=== PATIENT | female | born 1965 | race Caucasian/White ===

== ENCOUNTER 2016-09-18 14:06 | Observation (INO) | payer OTHER ==
[2016-09-17 13:58] VITALS: Ht 162.6 cm; Wt 85.0 kg
[~2016-09-18] VITALS: Ht 162.6 cm; Wt 85.0 kg
[2016-09-18] VITALS (18 sets, daily range): BP systolic 125–145; BP diastolic 59–72; PULSE 78–84; RESP 11–18
[~2016-09-18 14:06] MED LIST: BEN25 PO; EPIN0.3P4 INJ; FAMO-18 PO; PRED20TA PO
[2016-09-18] MEDS ORDERED: ASPI-664 PO (14:53)
[2016-09-18] MEDS ORDERED: LANT3I SC (14:53)
[2016-09-18] MEDS ORDERED: METO100T13 PO (14:54)
[2016-09-18] MEDS ORDERED: GLIP-95 PO (14:55)
[2016-09-18] MEDS ORDERED: BENA40TA41 PO (14:55)
[2016-09-18] MEDS ORDERED: CEFAZOLIN 1 GM/50 ML (PMX) 50 ML IVPB SCH (15:30)
[2016-09-18] MEDS ORDERED: NEOSTIGMINE 3 MG/3 ML SYRINGE ONE (16:25)
[2016-09-18] MEDS ORDERED: ROPIVACAINE 0.5 % 30 ML VIAL ONE (16:25)
[2016-09-18] MEDS ORDERED: ROCURONIUM 50 MG INJ ONE (16:25)
[2016-09-18] MEDS ORDERED: SUCCINYLCHOLINE CHLORIDE 100 MG/5 ML SYG IV ONE (16:25)
[2016-09-18] MEDS ORDERED: GLYCOPYRROLATE 0.4 MG INJ ONE (16:25)
[2016-09-18] MEDS ORDERED: LIDOCAINE 2% (SDV) 5 ML INJ ONE (16:25)
[2016-09-18] MEDS ORDERED: PROPOFOL 20 ML ONE (16:25)
[2016-09-18] MEDS ORDERED: CEFAZOLIN 1 GM INJ ONE (16:42)
--- NOTE | 2016-09-18 16:46 | RADRPT ---
PROCEDURE: XR Ankle. CLINICAL INDICATION: Fracture TECHNIQUE: Three views of the left ankle were performed. COMPARISON: None. FINDINGS: Overlying cast obscures osseous detail. There is an oblique, mildly displaced fracture of the dista l fibula. Small fracture fragments are present in the region of the posterior malleolus. There is a tiny density noted at the medial clear space likely from remote avulsion injury. IMPRESSION: 1. Casted lateral and posterior malleolar fractures. RPTAT: EE .Zak Biggs MD, MD Date Time Electronically viewed and signed by .Zak Biggs MD, MD on 09/18/2016 16:46 .d/
[2016-09-18] MEDS ORDERED: DIPHENHYDRAMINE 50 MG INJ IV PRN ×2 (17:30→19:00)
[2016-09-18] MEDS ORDERED: hydrALAzine 20 MG INJ IV PRN (17:30)
[2016-09-18] MEDS ORDERED: FENTAnyl 50 MCG/ML VIAL IV PRN (17:30)
[2016-09-18] MEDS ORDERED: EPHEDrine SULFATE 50 MG/5 ML SYG IV PRN (17:30)
[2016-09-18] MEDS ORDERED: ONDANSETRON 4 MG INJ IV PRN ×2 (17:30→19:00)
[2016-09-18] MEDS ORDERED: LABETALOL HCL 20MG INJ IV PRN (17:30)
[2016-09-18] MEDS ORDERED: HYDROmorphONE (0.2 MG/ML) 10ML SYG IV PRN (17:30)
[2016-09-18] MEDS ORDERED: MIDAZOLAM 1 MG/ML 2 ML INJ IV PRN (17:30)
[2016-09-18] MEDS ORDERED: METOCLOPRAMIDE 10 MG INJ IV PRN (17:30)
[2016-09-18] MEDS ORDERED: MEPERIDINE 25 MG INJ IV PRN (17:30)
[2016-09-18] MEDS: HYDROmorphONE (0.2 MG/ML) 10ML SYG IV PRN ×5 (18:55→19:48)
[2016-09-18] MEDS ORDERED: HYDROCODONE/APAP (5/325) TAB PO PRN (19:00)
[2016-09-18] MEDS ORDERED: IBUPROFEN 600 MG TAB PO PRN (19:00)
[2016-09-18] MEDS ORDERED: ZOLPIDEM 5 MG TAB PO PRN (19:00)
--- NOTE | 2016-09-18 19:02 | OPR ---
DATE OF OPERATION: 09/18/2016 SURGEON: Winston Black DPM MESH MAN: None. PREOPERATIVE DIAGNOSES: 1. Left ankle fracture. 2. Pain. 3. Diabetes with neuropathy. 4. Edema. 5. Type 2 diabetes. POSTOPERATIVE DIAGNOSES: 1. Left ankle fracture pain. 2. Diabetes with neuropathy. 3. Edema. 4. Type 2 diabetes. OPERATION: Left ankle open reduction internal fixation with plate, screws, and bone graft, Vitoss. PATHOLOGY: None. ANESTHESIA: General. ANESTHESIOLOGIST: Dr. Mack. HEMOSTASIS: Electrocautery. ESTIMATED BLOOD LOSS: 30 mL COMPLICATIONS: None. MATERIALS: Combination of locking and nonlocking titanium screws and a 4 hole fibular plate, 4.0 x 20 mm in length cannulated screw, and materials also include the Vitoss bone graft. INDICATION FOR PROCEDURE: This is a 51-year-old female with type 2 diabetes, poorly controlled. Sh e has fallen from stairs and subsequently developed an ankle fracture with dislocation. The patient was seen preoperatively, had been treated with a splint, persistent pain and dislocation. Surgery recommended. Discussed the procedure, risks, benefits, potential complications. Informed consent w as obtained, and site was marked. X-rays were taken preoperatively to visualize any changes from pr ior x-rays, and alignment appeared improved, fracture persisted. PROCEDURE IN DETAIL: The patient brought into the operating room and placed in the supine position. Formal timeout was performed. The patient was given a gram of Ancef preoperatively. The extremit y was cleansed with chlorhexidine and draped in the usual sterile fashion. A thigh tourniquet had b een placed. The extremity was exsanguinated and tourniquet elevated to 300 mmHg. At this time, att ention was directed to the left lateral ankle. Incision was made with a 10 blade. The periosteum w as elevated off of the bone. The sural nerve had been identified and retracted anterior to the fibu la. K elevator is used to elevate the tissues. Fracture site was identified, and using a curette, loose bone fragments were debrided, hematoma evacuated, and the fracture site irrigated with saline. At this time, the fracture site was mobilized and relocated. Temporary fixation was obtained usin g K-wires and confirmation with imaging. At this time, a partially threaded cannulated screw was pl aced from posterior to anterior with a 4.0 x 20 mm screw. At this time, the bone clamp was removed. The fracture appeared to be stable. Then, at this time, plate fixation applied to the lateral asp ect of the fibula and secured with a combination of locking and nonlocking screws with a 4 hole fibu lar plate. The medial gutter appeared reduced, and no syndesmotic screws utilized. The patient had a bony defect from the fracture site. At this time, a bone graft Vitoss was used to fill in the ganga ne voids. Tourniquet was deflated at 52 minutes. The patient had estimated blood loss of 30 mL. H emostasis was achieved. The wound was irrigated and surgical incision closed in a layered fashion u sing 3-0 and 4-0 Vicryl and 3-0 nylon. The incision was covered with Xeroform gauze, Webril, and pl aced in a short leg cast, which was then bivalved. The patient tolerated the procedure well. [facility] to incision. The patient was transferred to PACU with vital signs stable. POSTOPERATIVE PLAN: The patient will be admitted for monitoring. We will recommend ice, elevation, monitoring of pain. Continue the Ancef. We will have physical therapy evaluate. The patient is n onweightbearing to the left lower extremity. Anticipate observation overnight. We will initiate an ticoagulation therapy with Lovenox for DVT prophylaxis and Dr. Rey consulted for medical managemen t. Dictated By: WINSTON TOLENTINO/BRIANNA Conf#: [id number] DID#: [id number]
[2016-09-18] MEDS: FENTAnyl 50 MCG/ML VIAL IV PRN ×2 (19:22→19:29)
[2016-09-18] MEDS ORDERED: GLUCOSE GEL 15 GRAM TUBE PO PRN ×2 (19:30)
[2016-09-18] MEDS ORDERED: GLUCOSE GEL 15 GRAM TUBE BUCCAL PRN (19:30)
[2016-09-18] MEDS ORDERED: DEXTROSE 50% 50 ML SYRINGE IV PRN ×2 (19:30)
[2016-09-18] MEDS ORDERED: GLUCAGON 1 MG INJ IM PRN (19:30)
--- NOTE | 2016-09-18 20:42 | HP ---
DATE OF ADMISSION: 09/18/2016 INTERNAL MEDICINE HISTORY REASON FOR ADMISSION: Status post left ankle ORIF. HISTORY OF PRESENT ILLNESS: The patient is a 51-year-old female with history of diabetes mellitus t ype 2, poorly controlled, hypertension, diabetic neuropathy, peripheral edema who unfortunately sust ained a fall on 09/03/2016. She was found to have a left ankle fracture, treated initially with a sp lint, but she continued to have persistent pain and dislocation. Surgery was recommended. The patien t today underwent ORIF of the left ankle. Now patient is in the recovery room. The patient overall is doing well, complaining of slight pressure-like pain in the left foot. The left ankle is status p ost cast and banding. The patient has good sensation of the toes and movement. The patient denies a ny chest pain or shortness of breath, denies any fever or chills. The patient is admitted for [facility] care. PAST MEDICAL HISTORY: Includes diabetes mellitus on insulin, hypertension, neuropathy, peripheral e ángel. ALLERGIES: EXENATIDE. SURGICAL HISTORY: Left ankle ORIF and some surgery. FAMILY HISTORY: Noncontributory. SOCIAL HISTORY: The patient is single with no kids. The patient denies tobacco, alcohol or IV drug use. HOME MEDICATIONS: The patient's home medications include: 1. Benazepril 40 mg daily. 2. Toprol XL 100 mg daily. 3. Aspirin 81 daily. 4. Glipizide 20 mg b.i.d. 5. Lantus 65 units at bedtime. EKG: Which was done before surgery preop shows borderline T wave abnormality in the anterior leads , 71 beats per minute. Also reviewed the patient's preop labs and studies. The physician was Dr. Luke Sen. LABORATORY DATA: On 09/11/2012 shows a white count of 7.1, hemoglobin 13.4, hematocrit 40, platelet count 23, neutrophils 59%, lymphocytes 33%, and sodium was 141, potassium 4.3, chloride 101, bicarb nena 25, BUN is 11, creatinine 0.42, glucose of 81. AST 20, ALT 19, albumin is 4.5. UA shows basi fabio negative, negative nitrites, no WBCs. INR 1.1E. ASSESSMENT AND PLAN: 1. This is a 51-year-old female with history of diabetes mellitus, hypertension, status post left ankle fracture, now status post open reduction internal fixation. 2. Status post left ankle ORIF x-ray prior to surgery showed casted lateral and posterior malleolus fracture. Pain control will be provided. The patient will be placed on deep vein thrombosis proph ylaxis and gastrointestinal prophylaxis. SCDs on the right leg. Incentive spirometer as tolerated. 3. Diabetes mellitus, put on insulin sliding scale. Current glucose levels are good, 80s and 100. Will restart her insulin soon, as diet will be advanced. The patient will be placed on an ADA low sa lt diet. 4. Hypertension. We will resume the patient's blood pressure medications including beta blockers. Continue aspirin for cardiac protection. 5. Physical therapy as tolerated. Pain control will be provided. Patient is on cefazolin for anti biotic prophylaxis in the perioperative stage. I will follow patient closely with you. I would lik e to thank you for allowing me to see this patient in internal medicine consultation. We will carine wyatt Dictated By: PANCHO CISNEROS/BRIANNA Conf#: [id number] DID#: [id number]
[2016-09-18] MEDS: INSULIN ASPART [NOVOLOG] 3 ML PEN SC SCH (21:00)
[2016-09-18] MEDS: morphine 2 MG INJ IV PRN (21:50)
[2016-09-18] MEDS: CEFAZOLIN 1 GM/50 ML (PMX) 50 ML IVPB SCH (21:58)
[2016-09-19] MEDS: KETOROLAC 15 MG INJ IV PRN ×2 (00:06→22:38)
[2016-09-19] MEDS: ACCUCHECK AT 2AM (Patients on SS coverage) XX SCH (02:00)
[2016-09-19 05:57] LABS: ADD SCAN DIFF NO
[2016-09-19 06:04] LABS: BASOPHILS % 0.2 % (0.0-2.0); EOSINOPHILS # 0.1 10^3/ul (0.0-0.5); EOSINOPHILS % 1.1 % (0.0-7.0); HEMATOCRIT 39.3 % (37.0-47.0); HEMOGLOBIN 12.7 g/dl (12.0-16.0); LYMPHOCYTES # 1.5 10^3/ul (0.8-2.9); LYMPHOCYTES % 15.2 % (15.0-51.0); MEAN CORPUSCULAR HEMOGLOBIN 29.7 pg (29.0-33.0); MEAN CORPUSCULAR HGB CONC 32.3 g/dl (32.0-37.0); MEAN CORPUSCULAR VOLUME 91.8 fl (82.0-101.0); MONOCYTE # 0.6 10^3/ul (0.3-0.9); MONOCYTES % 6.4 % (0.0-11.0); NEUTROPHIL # 7.4 10^3/ul (1.6-7.5); NEUTROPHILS % 76.7 % (39.0-77.0); PLATELET COUNT 260 10^3/UL (140-415); RED BLOOD COUNT 4.28 10^6/ul (4.20-5.40); RED CELL DISTRIBUTION WIDTH 12.9 % (11.5-14.5); WHITE BLOOD COUNT 9.7 10^3/ul (4.8-10.8)
[2016-09-19] MEDS: PANTOPRAZOLE (EC) 40 MG TAB PO SCH (06:27)
[2016-09-19] MEDS: CEFAZOLIN 1 GM/50 ML (PMX) 50 ML IVPB SCH ×3 (06:27→21:41)
[2016-09-19] MEDS: ENOXAPARIN 40 MG/0.4 ML SYG SC SCH (06:35)
[2016-09-19 06:37] LABS: CHOL/HDL RATIO 3.4 RATIO
[2016-09-19 06:59] LABS: THYROID STIMULATING HORMONE 1.03 MIU/L (0.465-4.680)
[2016-09-19 07:05] LABS: ALBUMIN 4.6 g/dl (3.3-4.9); ALBUMIN/GLOBULIN RATIO 1.76; BILIRUBIN,INDIRECT 0.5 mg/dl (0-1.1); BILIRUBIN,TOTAL 0.5 mg/dl (0.2-1.3); CALCIUM 8.9 mg/dl (8.4-10.2); CREATININE 0.48 mg/dl (0.44-1.00); POTASSIUM 4.4 mmol/L (3.5-5.1); TOTAL PROTEIN 7.2 g/dl (6.1-8.1)
[2016-09-19 08:08] VITALS: BP 139/62; RESP 20
[2016-09-19] MEDS: INSULIN ASPART [NOVOLOG] 3 ML PEN SC SCH ×4 (08:15→21:00)
[2016-09-19] MEDS: METOPROLOL (XL) 100 MG TAB PO SCH ×2 (09:00→21:32)
[2016-09-19] MEDS: ZINC SULFATE 220 MG CAP PO SCH (09:29)
[2016-09-19] MEDS: ASCORBIC ACID 500 MG TAB PO SCH (09:29)
[2016-09-19] MEDS: ASPIRIN (EC) 81 MG TAB PO SCH (09:29)
[2016-09-19] MEDS: ACETAMINOPHEN 325 MG TAB PO PRN ×2 (09:31→15:47)
[2016-09-19] MEDS: BENAZEPRIL 40 MG TAB PO SCH (09:32)
[2016-09-19 09:35] LABS: MAGNESIUM 1.9 mg/dl (1.7-2.5); PHOSPHORUS 4.1 mg/dl (2.5-4.9)
--- NOTE | 2016-09-19 14:04 | PN ---
DATE: 09/19/2016 SUBJECTIVE: The patient is postop day #1 left ankle ORIF. The patient feels overall better. She p articipated with physical therapy today; had difficulty bending the knee. Initially she had decreas ed sensation of the toes, but now it is intact. Glucose levels are in the low-mid 100s. PHYSICAL EXAMINATION: VITAL SIGNS: Temperature is slightly elevated at 99.4, pulse 82, respirations 20, blood pressure 13 9/62, saturations 97% on room air. GENERAL: The patient is in no acute distress. The patient is frail. HEENT: Normocephalic, atraumatic. CARDIOVASCULAR: S1, S2, regular rate and rhythm. LUNGS: Clear. ABDOMEN: Soft, nontender. EXTREMITIES: Left lower extremity in a special cast below the knee going to the foot. Toes are war m to touch and sensation is intact. LABORATORY: White count 9.7, hemoglobin 12.7, hematocrit 39, platelet count is 260, neutrophils 77% , lymphocytes 15%. Chemistry: Sodium 143, potassium 4.4, chloride 106, bicarbonate 27, BUN is 16, creatinine 0.48 and glucose of 98. Last glucose level was 167, hemoglobin A1c is 9.2. LFTs are nor mal. Cholesterol 166, LDL is 93, HDL 48, TSH is 1.03. MEDICATIONS: Reviewed. Include: 1. Vitamin C 1000 daily. 2. Zinc sulfate 220 mg daily. 3. Aspirin 81 mg daily. 4. Lotensin 40 mg daily. 5. Toprol-XL 100 daily. 6. Lovenox 40 mg subcutaneous daily. 7. Protonix 40 mg daily. 8. Accu-Chek before meals and at bedtime. 9. Cefazolin 1 IV q.8. 10. Insulin aspart per sliding scale. 11. Hypoglycemia protocol as directed. 12. Tylenol p.r.n. 13. Motrin p.r.n. 14. p.r.n. 15. Regina p.r.n. 16. Morphine p.r.n. 17. Zofran p.r.n. 18. Benadryl p.r.n. 19. Ambien p.r.n. ASSESSMENT AND PLAN: This is a 51-year-old female with a history of diabetes mellitus, poorly controlled, hypertension, status post left ankle fracture, now status post left ankle ORIF, postop day #1. 1. Status post open reduction internal fixation. Continue physical therapy, pain control. The pat ient is on deep vein thrombosis prophylaxis and gastrointestinal prophylaxis, incentive spirometer. Disposition is home soon, with home health and a front-wheel walker. 2. Diabetes mellitus. The patient's appetite is not that great, so still glucose levels are good. Would increasing insulin as needed. I discussed with medical management as an outpatient the with t he various options, including metformin, Januvia, Farxiga, etc. 3. Hypertension. The patient on Lotensin and Toprol-XL. Continue the same. Continue aspirin for cardiac protection. 4. Further recommendations per Dr. Black regarding discharge planning. Otherwise the patient is discharged. Recommend to follow up closely with him and her primary medical doctor. We will follow . Dictated By: PANCHO CISNEROS/BRIANNA Conf#: [id number] DID#: [id number]
--- NOTE | 2016-09-19 16:37 | CONS ---
DATE OF ADMISSION: 09/18/2016 DATE OF CONSULTATION: 09/19/2016 SUBJECTIVE FINDINGS: The patient is postoperative day #1 left ankle ORIF. The patient relates cons tipation, shaky with crutches. Additional training requested. Anesthesias is wearing off and pain around the ankle noted, controlled with medicines. The patient has been receiving antibiotics and i nitiated on Lovenox this morning. The patient had nausea this morning, but is now improved. Glycem ic control per Dr. Rey. OBJECTIVE FINDINGS: VITAL SIGNS: Temperature 99.4, pulse 82, respiratory rate 20, blood pressure 139/62, pulse oximetry is 97 on room air. GENERAL: The patient alert, oriented, in no acute distress. EXTREMITIES: Relates mild tenderness to the ankle. Calf is soft and supple. Toes are warm. She is able to mobilize them. The cast is clean. LABORATORIES: No new labs. Radiographs are pending. ASSESSMENT: 1. Left ankle open reduction internal fixation, postoperative day #1. 2. Postoperative nausea. 3. Diabetes type 2 with neuropathy. PLAN: Continue physical therapy. May benefit from the use of a walker as opposed to crutches. Con tinue anticoagulation therapy. Appreciate case management with the assistance of home health. Will need 7 days of Lovenox. Anticipate discharge in the morning. Continue icing the extremity. Annie nue tight glycemic control. The patient is nonweightbearing to the operative limb. Dictated By: WINSTON TOLENTINO/BRIANNA Conf#: [id number] DID#: [id number]
--- NOTE | 2016-09-19 17:33 | RADRPT ---
PROCEDURE: Left ankle x-ray series. CLINICAL INDICATION: Trauma, pain, open reduction and internal fixation. TECHNIQUE: Fluoroscopy was provided for the surgical procedure in progress. Multiple spot images were obtained. COMPARISON: 09/18/2016 at 1601 hours FINDINGS: Intraoperative images were obtained for localization during an ankle ORIF procedure. The procedure was performed by Dr. Black. No radiologist was present for the procedure. No diagnosis was made from the images. 25 seconds of fluoroscopic time was utilized for the procedure. 4 fluoroscopic images were submitted for interpretation. IMPRESSION: 1. Xray images obtained intraoperatively for localization during an ankle ORIF procedure. 2. Satisfactory position of orthopedic hardware. RPTAT: QQ .Eduardo Don MD, Date Time Electronically viewed and signed by .Eduardo Don MD, on 09/19/2016 17:32 .M/
--- NOTE | 2016-09-19 19:43 | RADRPT ---
PROCEDURE: Ultrasound of the left lower extremity venous system. CLINICAL INDICATION: Left leg pain and swelling, deep venous thrombosis TECHNIQUE: Barrera scale with and without compression, color doppler, spectral doppler of the venous system of the left lower extremity was performed. Venous augmentation maneuvers were utilized. COMPARISON: No prior studies are available for comparison. FINDINGS: Common femoral vein: Patent. Femoral vein: Patent. Popliteal vein: Patent. Calf veins: Obscured due to cast. No soft tissue abnormalities are identified. IMPRESSION: No evidence of a deep vein thrombosis within the left lower extremity. RPTAT: AADD .Villa Dorado MD, MD Date Time Electronically viewed and signed by .Villa Dorado MD, MD on 09/19/2016 19:42 .B/
[2016-09-19 20:00] VITALS: BP 154/67; RESP 18
[2016-09-19] MEDS ORDERED: INSULIN GLARGINE [LANtus] 3 ML PEN SC SCH (20:00)
[2016-09-19] MEDS: morphine 2 MG INJ IV PRN (21:30)
[2016-09-19] MEDS: DOCUSATE SODIUM 100 MG CAP PO SCH (21:30)
[2016-09-20] MEDS: ACCUCHECK AT 2AM (Patients on SS coverage) XX SCH (02:00)
[2016-09-20] MEDS: PANTOPRAZOLE (EC) 40 MG TAB PO SCH (06:14)
[2016-09-20] MEDS: CEFAZOLIN 1 GM/50 ML (PMX) 50 ML IVPB SCH ×2 (06:14→14:38)
[2016-09-20] MEDS: ENOXAPARIN 40 MG/0.4 ML SYG SC SCH (06:44)
[2016-09-20 07:38] VITALS: BP 147/67; RESP 16
[2016-09-20] MEDS: INSULIN ASPART [NOVOLOG] 3 ML PEN SC SCH ×2 (08:15→12:40)
[2016-09-20] MEDS: ACETAMINOPHEN 325 MG TAB PO PRN ×2 (08:23→14:38)
[2016-09-20] MEDS: ASPIRIN (EC) 81 MG TAB PO SCH (08:23)
[2016-09-20] MEDS: ASCORBIC ACID 500 MG TAB PO SCH (08:23)
[2016-09-20] MEDS: DOCUSATE SODIUM 100 MG CAP PO SCH (08:23)
[2016-09-20] MEDS: BENAZEPRIL 40 MG TAB PO SCH (08:23)
[2016-09-20] MEDS: ZINC SULFATE 220 MG CAP PO SCH (08:23)
[2016-09-20] MEDS: METOPROLOL (XL) 100 MG TAB PO SCH (08:24)
--- NOTE | 2016-09-20 10:49 | RADRPT ---
PROCEDURE: XR Ankle. CLINICAL INDICATION: Status post ORIF left lateral malleolar fracture. TECHNIQUE: AP, lateral, and oblique views of the left ankle were performed. COMPARISON: 09/18/2016 FINDINGS: Lateral fixation plate and screws are seen along the left distal fibula and lateral malleolus. Ther e is no acute fracture or dislocation. Tiny ossific densities is seen adjacent to the medial and po sterior malleolus are present and chip fractures cannot be excluded. The mortise joint is aligned.. . There is mild soft tissue swelling. There is a fiberglass cast around the left ankle limiting bony details. IMPRESSION: 1. Status post ORIF of of left distal fibula and lateral malleolus. 2. Fiberglass cast in place.. RPTAT: QQ .Arturo Mahmood MD, Date Time Electronically viewed and signed by .Arturo Mahmood MD, on 09/20/2016 10:49 .L/
--- NOTE | 2016-09-20 11:24 | PDOCDIS ---
Discharge Instructions CONDITION Patient Condition: Stable HOME CARE INSTRUCTIONS: Special Diet: 1800 JOHN ACTIVITY: Activity Restrictions: Slowly Increase Activity FOLLOW UP/APPOINTMENTS Appointments follow up with Dr. Brunson, see prescriptions, reconciliation PANCHO LEONARDO MD Sep 20, 2016 11:24
[2016-09-20] MEDS ORDERED: RIVA10TA PO (11:27)
[2016-09-20] MEDS ORDERED: GLIP-95 PO (11:27)
[2016-09-20] MEDS ORDERED: LANT3I SC (11:27)
[2016-09-20] MEDS ORDERED: METF1000 PO (11:27)
[2016-09-20] MEDS ORDERED: HYDR-906 PO (11:34)
--- NOTE | 2016-09-20 14:06 | CONS ---
DATE OF ADMISSION: 09/18/2016 DATE OF CONSULTATION: 09/20/2016 SUBJECTIVE FINDINGS: The patient is pending discharge, left ankle ORIF postoperative day 2. She grayson s additional physical therapy training and ultrasound had been performed due to calf pain which was present following her initial injury, possibly related to her splint, but venous ultrasound revealed no evidence of deep vein thrombosis. Radiographs reveal improved alignment of the fracture. The p atient also relates improved sensation to the toes and has pain to ankle which is controlled with me dication. OBJECTIVE FINDINGS VITAL SIGNS: Temperature 98.2, pulse 87, respiratory 16, blood pressure 147/67, pulse ox is 98%. GENERAL: The patient alert, oriented, no acute distress cast present. Calf is supple, toes are war m. EXTREMITIES: Patient able to mobilize and cast is clean. IMAGING: Venous ultrasound patent common femoral vein, femoral vein and popliteal vein. X-rays rev eal satisfactory position of orthopedic hardware. ASSESSMENT: 1. Left ankle fracture status post open reduction internal fixation. 2. Constipation. 3. Postoperative pain. 4. Gait abnormality with crutches. 5. Diabetes type 2 with peripheral neuropathy. PLAN: The patient seen and evaluated. Recommend continue deep venous thrombosis prophylaxis with L ovenox. Appreciate case management assistance with this. Lovenox 40 mg subq x6 additional days. T he patient has additional physical therapy and reviewed ultrasound and radiographs, continue nonweig htbearing status to the left foot. Dictated By: WINSTON TOLENTINO/BRIANNA Conf#: [id number] DID#: [id number]
--- NOTE | 2016-09-20 19:25 | DS ---
DATE OF ADMISSION: 09/18/2016 DATE OF DISCHARGE: 09/20/2016 REASON FOR ADMISSION: Elective left ankle ORIF, status post fracture. HOSPITAL COURSE: Patient is a 51-year-old female with history of diabetes mellitus type 2, poorly c ontrolled, hypertension, diabetic neuropathy, peripheral edema who unfortunately sustained a fall on 09/03/2016. She was found to have a left ankle fracture, initially treated with a splint. The pat ient continued to have persistent pain and dislocation, surgery was recommended. The patient was ad mitted and underwent ORIF of the left ankle. Postop, patient had multiple studies done including a followup x-ray which showed status post open reduction internal fixation of the left distal fibula a nd lateral malleolus, fiberglass cast in place. Venous ultrasound of the left lower extremity shows no evidence of DVT. The patient received pain control and physical therapy. She was recommended to have a front-wheeled walker. Will discharge her on blood thinners per Dr. Black recommendations, either Xarelto or Lovenox. The patient will be discharged. His vital signs are stable. Temperature 98.2, pulse 87, respirations 16, blood pressure 147/67, saturation 98%. DISCHARGE MEDICATIONS: Patient will be discharged with the following medications: 1. Metformin 1000 b.i.d. She took that before. 2. Xarelto 10 mg daily. If that is not covered, then will do the Lovenox which is 40 subcutaneous d aily. 3. Aspirin 81 mg daily. 4. Benazepril 4 mg daily. 5. Metoprolol succinate 100 mg daily. 6. I have reduced the dose of Glipizide to 10 mg b.i.d. 7. Reduced the Lantus to 30 units at bedtime. 8. I would like her monitor her sugars and adjust home medication accordingly. She needs to check h er sugar more often and follow up closely with her doctor as patient's hemoglobin A1c is 9.2. DISCHARGE INSTRUCTIONS: The patient is welcome to come to my office as well and will call me for an y glucose levels or any concerns. The patient will be discharged today. FINAL DIAGNOSES: 1. Left ankle fracture status post open reduction internal fixation. 2. Diabetes mellitus. 3. Diabetic neuropathy. 4. Obese state with a body mass index of 32.2. 5. Hypertension. DIET: ADA 1800, 2 g sodium. ACTIVITY: As tolerated. The patient will be discharged today. Dictated By: PANCHO CISNEROS/BRIANNA Conf#: [id number] DID#: [id number]
== END 2016-09-20 17:15 | disposition home or self-care (01) ==
LOC: SDS 14:06 → MS2 20:05 → SDS 20:38
PROVIDERS: ADMIT Podiatrist Foot & Ankle Surgery; ATTEND Podiatrist Foot & Ankle Surgery
DX: S82.62XD Displaced fracture of lateral malleolus of left fibula, subsequent encounter for closed fracture with routine healing (principal); E11.40 Type 2 diabetes mellitus with diabetic neuropathy, unspecified; R60.0 Localized edema; Z79.4 Long term (current) use of insulin; I10 Essential (primary) hypertension; K59.00 Constipation, unspecified; G89.18 Other acute postprocedural pain; R26.9 Unspecified abnormalities of gait and mobility; E66.9 Obesity, unspecified; Z68.32 Body mass index [BMI] 32.0-32.9, adult; Z79.82 Long term (current) use of aspirin; E78.5 Hyperlipidemia, unspecified; F41.9 Anxiety disorder, unspecified; Z88.8 Allergy status to other drugs, medicaments and biological substances; W19.XXXD Unspecified fall, subsequent encounter
CPT/HCPCS: 27792; 73600; 73610; 80053; 80061; 82962; 83036; 83735; 84100; 84443; 85025; 93971; 96365; 96366; 96372; 96375; 96376; 97164; C1713; G0378; J0690; J1170; J1650; J1815; J1885; J2270; J2405; J2795; J3010; J2710; J7999